=== PATIENT | female | born 1990 | race Two or more races ===

== ENCOUNTER 2018-06-03 16:30 | Emergency (ER) | payer OTHER ==
[~2018-06-03] VITALS: Ht 154.9 cm; Wt 83.0 kg
[2018-06-03 16:16] VITALS: BP 141/92
== END 2018-06-03 16:54 | disposition left against medical advice (07) ==
LOC: ER 16:30
DX: Z53.21 Procedure and treatment not carried out due to patient leaving prior to being seen by health care provider (principal)
CPT/HCPCS: 93005